=== PATIENT | female | born 1950 | race Caucasian/White ===

== ENCOUNTER 2024-12-06 18:00 | Inpatient (IN) | payer MEDICARE ==
[~2024-12-06] VITALS: Ht 162.6 cm; Wt 46.3 kg
[2024-12-06 18:44] LABS: RED BLOOD CELL COUNT(AUTO) 2.39 MIL/uL (4.0-5.2); WHITE BLOOD COUNT (AUTO) 5.7 K/uL (4.3-11.0)
[2024-12-06 18:45] LABS: PLATELET COUNT (AUTO) 158 K/uL (150-450); RED CELL DISTRIBUTION WIDTH 14.8 % (11.5-15.0)
[2024-12-06 18:50] LABS: CALCIUM, SERUM 8.9 mg/dL (8.5-10.1); CREATININE 0.4 mg/dL (0.6-1.3); SODIUM SERUM 140 mmol/L (136-145); UREA NITROGEN, BLOOD 14 mg/dL (7-18)
[2024-12-06 19:03] LABS: ASPARTATE AMINOTRANSFERASE 70 U/L (15-37); NT-PRO BNP 887 pg/mL (0-125); TOTAL PROTEIN, SERUM 6.7 g/dL (6.4-8.2)
[2024-12-06] MEDS ORDERED: ATOR10TA PO (19:39)
[2024-12-06] MEDS ORDERED: ASPI-1420 PO (19:39)
[2024-12-06] MEDS ORDERED: LOSA25TA27 PO (19:39)
[2024-12-06] MEDS ORDERED: PROP60CA2 PO (19:39)
[2024-12-06] MEDS ORDERED: OMEP40CA21 PO (19:39)
[2024-12-06] MEDS ORDERED: ONDANSETRON HCL/PF 4 MG/2 ML VIAL IVP PRN (20:30)
[2024-12-06] MEDS ORDERED: ALPRAZOLAM 0.25 MG TABLET PO PRN (20:30)
[2024-12-06] MEDS ORDERED: Z GUARD REMEDY 4 OZ OINT TP PRN (20:30)
[2024-12-06] MEDS ORDERED: MAGNESIUM HYDROXIDE 30 ML UDC PO PRN (20:30)
[2024-12-06] MEDS ORDERED: MAG HYDROX/AL HYDROX/SIMETH 30 ML UDC PO PRN (20:30)
[2024-12-06] MEDS ORDERED: ACETAMINOPHEN 325 MG TABLET PO PRN (20:30)
[2024-12-06] MEDS ORDERED: HYDROCODONE/APAP 5/325MG TABLET PO PRN (20:30)
[2024-12-06 20:40] VITALS: BP 137/65; TEMP 98.1; O2SAT 97
[2024-12-06 22:00] VITALS: BP 137/65; TEMP 98.1; O2SAT 97
[2024-12-07] VITALS: BP_SYST 109; BP_SYST 121; BP_SYST 126; BP_DIAS 58; BP_DIAS 60; BP_DIAS 67; TEMP 98.4; O2SAT 97
[2024-12-07] MEDS: ZOLPIDEM TARTRATE 5 MG TABLET PO PRN (01:32)
[2024-12-07 04:00] VITALS: BP 111/63; TEMP 98.8; O2SAT 95
[2024-12-07 07:42] LABS: PLATELET COUNT (AUTO) 143 K/uL (150-450); RED BLOOD CELL COUNT(AUTO) 2.45 MIL/uL (4.0-5.2); RED CELL DISTRIBUTION WIDTH 14.5 % (11.5-15.0); WHITE BLOOD COUNT (AUTO) 4.3 K/uL (4.3-11.0)
[2024-12-07 08:00] VITALS: BP 118/66; TEMP 98.1; O2SAT 97
[2024-12-07 08:18] LABS: CALCIUM, SERUM 8.6 mg/dL (8.5-10.1); CREATININE 0.4 mg/dL (0.6-1.3); PHOSPHORUS 3.6 mg/dL (2.5-4.9); SODIUM SERUM 144.0 mmol/L (136-145); UREA NITROGEN, BLOOD 15.0 mg/dL (7-18)
[2024-12-07] MEDS: ATORVASTATIN 10 MG TABLET PO SCH (08:37)
[2024-12-07] MEDS: ASPIRIN EC 81 MG TABLET.DR PO SCH (08:37)
[2024-12-07] MEDS: PANTOPRAZOLE 40 MG TABLET.DR PO SCH (08:37)
[2024-12-07] MEDS: LOSARTAN POTASSIUM 25 MG TABLET PO SCH (08:38)
[2024-12-07] MEDS: PROPRANOLOL LA 60 MG CAP.SA.24H PO SCH (08:40)
[2024-12-07 08:43] LABS: LDL 50.0 mg/dL (0-99)
[2024-12-07] MEDS: MAGNESIUM OXIDE 400 MG TABLET PO ONE (12:21)
[2024-12-07] MEDS: CEPHALEXIN MONOHYDRATE 500 MG CAPSULE PO SCH (13:36)
[2024-12-07 16:00] VITALS: BP 124/72; TEMP 97.9; O2SAT 97
[2024-12-07 20:00] VITALS: BP 121/59; TEMP 98.4; O2SAT 98
[2024-12-08] VITALS: BP 121/77; TEMP 98.6; O2SAT 96
[2024-12-08 04:00] VITALS: BP 119/62; TEMP 98.6; O2SAT 96
[2024-12-08 07:10] LABS: CALCIUM, SERUM 8.9 mg/dL (8.5-10.1); CREATININE 0.5 mg/dL (0.6-1.3); PHOSPHORUS 3.4 mg/dL (2.5-4.9); SODIUM SERUM 142.0 mmol/L (136-145); UREA NITROGEN, BLOOD 9.0 mg/dL (7-18)
[2024-12-08 08:54] VITALS: BP 110/69; TEMP 97.7; O2SAT 99
[2024-12-08 09:52] VITALS: BP 110/69
[2024-12-08] MEDS ORDERED: MAGNESIUM OXIDE 400 MG TABLET PO ONE (10:00)
== END 2024-12-08 10:50 | disposition home health service (06) | DRG 41 ==
LOC: ER 18:04 → TELE 20:22
PROVIDERS: ADMIT Nurse Practitioner Acute Care; ATTEND Nurse Practitioner Acute Care
PROC: 0JQ00ZZ Repair Scalp Subcutaneous Tissue and Fascia, Open Approach (ICD-10-PCS; principal; 2024-12-06)
DX: G90.89 Other disorders of autonomic nervous system (principal); I50.32 Chronic diastolic (congestive) heart failure; S06.9X9A Unspecified intracranial injury with loss of consciousness of unspecified duration, initial encounter; I11.0 Hypertensive heart disease with heart failure; N39.0 Urinary tract infection, site not specified; S01.01XA Laceration without foreign body of scalp, initial encounter; Z95.2 Presence of prosthetic heart valve; D53.9 Nutritional anemia, unspecified; E86.0 Dehydration; Z88.3 Allergy status to other anti-infective agents; Z88.2 Allergy status to sulfonamides; Z95.1 Presence of aortocoronary bypass graft; Z79.82 Long term (current) use of aspirin; Z79.899 Other long term (current) drug therapy; E78.5 Hyperlipidemia, unspecified; Z98.890 Other specified postprocedural states; W18.30XA Fall on same level, unspecified, initial encounter; Y92.512 Supermarket, store or market as the place of occurrence of the external cause
CPT/HCPCS: 36415; 70450-TC; 71045-TC; 80048-TC; 80061-TC; 80076-TC; 82962-TC; 83735-TC; 83880; 84100-TC; 84484-TC; 85025-TC; 93307-TC; 97110-TC; 97116-TC; 97530-TC; 97535-TC; A6403; G0378